=== PATIENT | male | born 1950 | race Caucasian/White ===

== ENCOUNTER 2020-06-29 11:00 | Inpatient (IN) ==
[2020-06-29] MEDS ORDERED: Aspirin 81 MG TAB.CHEW PO ONE (11:02)
[2020-06-29 11:34] LABS: Basophils % 0.4 %; Eosinophils # 0.1 K/mcL (0.0-0.6); Eosinophils % 0.9 %; Hematocrit 34.7 % (37.5-50.1); Hemoglobin 11.9 g/dL (12.9-16.9); Immature Granulocytes % 0.7 % (0-4); Lymphocytes # 1.8 K/mcL (0.6-4.6); Lymphocytes % 19.8 %; Mean Corpuscular HGB Conc 34.3 g/dL (31.6-35.5); Mean Corpuscular Hemoglobin 32.2 pg (28.0-33.3); Mean Corpuscular Volume 93.8 fL (83.0-100.0); Mean Platelet Volume 9.7 fL (9.4-12.4); Monocytes # 0.7 K/mcL (0.0-1.3); Monocytes % 7.7 %; Neutrophils # 6.5 K/mcL (1.6-8.9); Platelet Count 120 K/mcL (140-400); Red Cell Distribution Width 13.2 % (11.5-14.5); Segmented Neutrophils % 70.5 %; White Blood Count 9.2 K/mcL (4.3-11.1)
[2020-06-29 11:46] LABS: INR 1.4
[2020-06-29 11:49] LABS: Activated Partial Thrombo Time 25.6 Seconds (26.0-36.0)
[2020-06-29 11:53] LABS: Albumin 3.2 g/dL (3.5-5.7); Albumin/Globulin Ratio 0.7 (1.1-2.2); Bilirubin,Direct 0.4 mg/dL (0.0-0.2); Bilirubin,Indirect 0.8 mg/dL (0.0-1.0); Bilirubin,Total 1.2 mg/dL (0.3-1.0); Globulin 4.4 g/dL (2.4-3.5); Total Protein 7.6 g/dL (6.4-8.9)
[2020-06-29 11:55] LABS: BUN/Creatinine Ratio 15 (6-26); Blood Urea Nitrogen 16 mg/dL (8-23); Calcium 9.1 mg/dL (8.6-10.3); Carbon Dioxide 24 mEq/L (23-29); Chloride 105 mEq/L (98-107); Glucose 126 mg/dL (70-105); Magnesium 1.7 mg/dL (1.6-2.6); Osmolality,Calculated 283 (280-300); Phosphorous 2.3 mg/dL (2.7-4.5); Potassium 3.7 mEq/L (3.5-5.1); Sodium 135 mEq/L (136-145); Troponin I < 0.03 ng/mL (< 0.04); eGFR For African Americans > 60 (> 60); eGFR For Non-African Americans > 60 (> 60)
[2020-06-29 13:22] LABS: Amphetamine Screen,Urine Negative ng/mL (Cutoff=1000); Barbiturate Screen,Urine Negative ng/mL (Cutoff=200); Benzodiazepines Screen,Urine Negative ng/mL (Cutoff=200); Cannabinoid Screen,Urine Negative ng/mL (Cutoff = 50); Cocaine Screen,Urine Negative ng/mL (Cutoff= 300); Opiate Screen,Urine Negative ng/mL (Cutoff=300); Phencyclidine Screen,Urine Negative ng/mL (Cutoff=25)
[2020-06-29 13:24] LABS: Acetaminophen < 10 mcg/mL (10-20); Ethanol < 10 mg/dL (Less than 10); Salicylate < 2.5 mg/dL (15.0-30.0)
[2020-06-29 13:40] LABS: Bacteria,Urine Few per hpf (None-Few); Bilirubin,Urine Negative (Negative); Blood,Urine Small (Negative); Clarity,Urine Clear (Clear); Color,Urine Yellow (Yellow); Glucose,Urine (UA) 50 mg/dL (Normal); Hyaline Casts,Urine Few per lpf (None Seen); Ketones,Urine Negative (Negative); Leukocyte Esterase,Urine Moderate (Negative); Mucus,Urine Few per lpf (None-Few); Nitrite,Urine Positive (Negative); Protein,Urine 30 mg/dL (Neg-Trace); Specific Gravity,Urine 1.022 (1.010-1.025); Squamous Epithelial Cell,Urine Few per hpf (None-Few); WBC,Urine 15-30 per hpf (0-3)
[2020-06-29] MEDS ORDERED: cefTRIAXone 1,000 MG in Water for inj. (sterile) 10 ML IVP ONE (14:28)
[2020-06-29] MEDS ORDERED: Acetaminophen 325 MG TABLET PO PRN (14:30)
[2020-06-29] MEDS ORDERED: Ondansetron ODT 4 MG TAB.RAPDIS SL PRN (14:30)
[2020-06-29] MEDS ORDERED: Haloperidol Lactate 5 MG/ML VIAL IVP PRN (14:41)
[2020-06-29] MEDS ORDERED: *HR* LORazepam 2 MG/ML VIAL IVP PRN ×3 (15:45)
[2020-06-29] MEDS: Thiamine (B-1) 100 MG TABLET PO SCH (16:12)
[2020-06-29] MEDS: Vitamin B Complex/Vit C/Vit E 1 EACH TABLET PO SCH (16:12)
[2020-06-29] MEDS: Gabapentin 300 MG CAPSULE PO SCH (20:05)
[2020-06-30] MEDS ORDERED: Regadenoson 0.4 MG/5 ML SYRINGE IVP ONE (06:29)
[2020-06-30] MEDS: *HR* Enoxaparin 40 MG/0.4 ML SYRINGE SQ SCH (06:59)
[2020-06-30] MEDS: DilTIAZem CD (24hr) 180 MG CAP.ER.24H PO SCH (11:57)
[2020-06-30] MEDS: Aspirin Enteric Coated 81 MG Tablet PO SCH (11:57)
[2020-06-30] MEDS: cefTRIAXone 1,000 MG in Water for inj. (sterile) 10 ML IVP SCH (11:57)
[2020-06-30] MEDS: Thiamine (B-1) 100 MG TABLET PO SCH (11:57)
[2020-06-30] MEDS: Vitamin B Complex/Vit C/Vit E 1 EACH TABLET PO SCH (11:57)
[2020-06-30] MEDS ORDERED: Perflutren Lipid Microsphere 1.3 ML in 0.9 % Sodium Chloride 8.7 ML IVP PRN (15:36)
[2020-06-30] MEDS: Gabapentin 300 MG CAPSULE PO SCH (20:18)
[2020-07-01] MEDS: *HR* Enoxaparin 40 MG/0.4 ML SYRINGE SQ SCH (05:09)
[2020-07-01] MEDS: Thiamine (B-1) 100 MG TABLET PO SCH (07:34)
[2020-07-01] MEDS: DilTIAZem CD (24hr) 180 MG CAP.ER.24H PO SCH (07:35)
[2020-07-01] MEDS: cefTRIAXone 1,000 MG in Water for inj. (sterile) 10 ML IVP SCH (07:35)
[2020-07-01] MEDS: Vitamin B Complex/Vit C/Vit E 1 EACH TABLET PO SCH (07:35)
[2020-07-01] MEDS: Aspirin Enteric Coated 81 MG Tablet PO SCH (07:35)
[2020-07-01 09:04] LABS: Hematocrit 36.5 % (37.5-50.1); Hemoglobin 12.2 g/dL (12.9-16.9); Mean Corpuscular HGB Conc 33.4 g/dL (31.6-35.5); Mean Corpuscular Hemoglobin 32.1 pg (28.0-33.3); Mean Corpuscular Volume 96.1 fL (83.0-100.0); Mean Platelet Volume 9.5 fL (9.4-12.4); Platelet Count 121 K/mcL (140-400); Red Cell Distribution Width 13.6 % (11.5-14.5); White Blood Count 7.4 K/mcL (4.3-11.1)
[2020-07-01 09:25] LABS: BUN/Creatinine Ratio 21 (6-26); Blood Urea Nitrogen 17 mg/dL (8-23); Calcium 9.3 mg/dL (8.6-10.3); Carbon Dioxide 26 mEq/L (23-29); Chloride 106 mEq/L (98-107); Glucose 116 mg/dL (70-105); Osmolality,Calculated 291 (280-300); Potassium 3.5 mEq/L (3.5-5.1); Sodium 139 mEq/L (136-145); eGFR For African Americans > 60 (> 60); eGFR For Non-African Americans > 60 (> 60)
[2020-07-01] MEDS: Metoprolol XL (24 HR) Succ 25 MG TAB.ER.24H PO SCH (13:13)
[2020-07-01] MEDS: Gabapentin 300 MG CAPSULE PO SCH (21:56)
[2020-07-02] MEDS: *HR* Enoxaparin 40 MG/0.4 ML SYRINGE SQ SCH (05:13)
[2020-07-02] MEDS: Thiamine (B-1) 100 MG TABLET PO SCH (07:28)
[2020-07-02] MEDS: Metoprolol XL (24 HR) Succ 25 MG TAB.ER.24H PO SCH (07:28)
[2020-07-02] MEDS: Aspirin Enteric Coated 81 MG Tablet PO SCH (07:28)
[2020-07-02] MEDS: Vitamin B Complex/Vit C/Vit E 1 EACH TABLET PO SCH (07:28)
[2020-07-02] MEDS: DilTIAZem CD (24hr) 180 MG CAP.ER.24H PO SCH (07:28)
[2020-07-02] MEDS: lisinopriL 5 MG TABLET PO SCH (11:55)
[2020-07-02 13:45] LABS: Adenovirus Not Detected (Not Detect); Bordetella Pertussis Not Detected (Not Detect); Chlamydophila pneumoniae Not Detected (Not Detect); Coronavirus 229E Not Detected (Not Detect); Coronavirus HKU1 Not Detected (Not Detect); Coronavirus NL63 Not Detected (Not Detect); Coronavirus OC43 Not Detected (Not Detect); Human Metapneumovirus Not Detected (Not Detect); Human Rhinovirus/Enterovirus Not Detected (Not Detect); Influenza A Subtype 2009 H1 Not Detected (Not Detect); Influenza B Not Detected (Not Detect); Mycoplasma pneumoniae Not Detected (Not Detect); Parainfluenza Virus 1 Not Detected (Not Detect); Parainfluenza Virus 2 Not Detected (Not Detect); Parainfluenza Virus 3 Not Detected (Not Detect); Parainfluenza Virus 4 Not Detected (Not Detect); Respiratory Syncytial Virus Not Detected (Not Detect); SARS-CoV-2 Not Detected (Not Detect)
[2020-07-02] MEDS: Gabapentin 300 MG CAPSULE PO SCH (19:27)
[2020-07-03] MEDS: *HR* Enoxaparin 40 MG/0.4 ML SYRINGE SQ SCH (05:14)
[2020-07-03] MEDS: Thiamine (B-1) 100 MG TABLET PO SCH (07:27)
[2020-07-03] MEDS: Vitamin B Complex/Vit C/Vit E 1 EACH TABLET PO SCH (07:27)
[2020-07-03] MEDS: lisinopriL 5 MG TABLET PO SCH (07:27)
[2020-07-03] MEDS: Aspirin Enteric Coated 81 MG Tablet PO SCH (07:27)
[2020-07-03] MEDS ORDERED: Metoprolol XL (24 HR) Succ 25 MG TAB.ER.24H PO SCH (09:00)
[2020-07-03 11:07] VITALS: BP 137/82
== END 2020-07-03 14:09 | DRG 313 ==
LOC: EMEROOARM 11:00 → 3BNU 11:00 → SUATTDRO 14:26 → 3BNU 15:55 → SUATTDRO 07-01 14:28
PROVIDERS: ADMIT Student in an Organized Health Care Education/Training Program; ATTEND Internal Medicine

== ENCOUNTER 2020-07-05 18:38 | Inpatient (IN) ==
[2020-07-05] MEDS ORDERED: Acetaminophen 325 MG TABLET PO PRN (21:57)
[2020-07-05] MEDS ORDERED: Melatonin 3 MG TABLET PO PRN (21:57)
[2020-07-05] MEDS ORDERED: Naloxone 0.4 MG/ML INJ IVP PRN (21:57)
[2020-07-05] MEDS ORDERED: Ondansetron 4 MG/2 ML VIAL IVP PRN (21:57)
[2020-07-05] MEDS ORDERED: Haloperidol Lactate 5 MG/ML VIAL IM PRN (22:03)
[2020-07-05] MEDS ORDERED: traZODone 50 MG TABLET PO PRN (22:03)
[2020-07-05] MEDS ORDERED: *HR* LORazepam 1 MG TABLET PO PRN (22:03)
[2020-07-05] MEDS ORDERED: haloperidoL 5 MG TABLET PO PRN (22:35)
[2020-07-05] MEDS: Ringers Solution, Lactated 1,000 ML IVC SCH (22:57)
[2020-07-06 04:32] LABS: Basophils % 0.5 %; Mean Corpuscular Volume 96.2 fL (83.0-100.0); Red Cell Distribution Width 14.1 % (11.5-14.5)
[2020-07-06 04:34] LABS: Eosinophils # 0.1 K/mcL (0.0-0.6); Hematocrit 38.2 % (37.5-50.1); Hemoglobin 12.6 g/dL (12.9-16.9); Immature Granulocytes % 0.3 % (0-4); Immature Platelets 3.8 % (1.1-6.1); Lymphocytes # 2.4 K/mcL (0.6-4.6); Lymphocytes % 27.3 %; Mean Corpuscular Hemoglobin 31.7 pg (28.0-33.3); Mean Platelet Volume 9.5 fL (9.4-12.4); Monocytes # 1.2 K/mcL (0.0-1.3); Monocytes % 14.2 %; Platelet Count 130 K/mcL (140-400); Red Blood Count 3.97 M/mcL (4.19-5.50); Segmented Neutrophils % 56.7 %; White Blood Count 8.7 K/mcL (4.3-11.1)
[2020-07-06 04:41] LABS: Neutrophils # 4.9 K/mcL (1.6-8.9)
[2020-07-06 04:48] LABS: BUN/Creatinine Ratio 26 (6-26); Blood Urea Nitrogen 24 mg/dL (8-23); Calcium 8.7 mg/dL (8.6-10.3); Carbon Dioxide 26 mEq/L (23-29); Chloride 106 mEq/L (98-107); Glucose 136 mg/dL (70-105); Magnesium 1.8 mg/dL (1.6-2.6); Osmolality,Calculated 290 (280-300); Potassium 3.6 mEq/L (3.5-5.1); Sodium 137 mEq/L (136-145); eGFR For African Americans > 60 (> 60); eGFR For Non-African Americans > 60 (> 60)
[2020-07-06 04:58] LABS: INR 1.4
[2020-07-06] MEDS ORDERED: *HR* Enoxaparin 40 MG/0.4 ML SYRINGE SQ SCH (06:00)
[2020-07-06] MEDS ORDERED: Metoprolol XL (24 HR) Succ 50 MG TAB.ER.24H PO SCH (09:00)
[2020-07-06] MEDS: Aspirin Enteric Coated 81 MG Tablet PO SCH (09:24)
[2020-07-06] MEDS: Folic Acid 1 MG TABLET PO SCH (09:24)
[2020-07-06] MEDS: Ringers Solution, Lactated 1,000 ML IVC SCH (09:27)
[2020-07-06] MEDS ORDERED: *HR* Dextrose 50 % in Water (Vial) 50 ML VIAL IVP PRN (15:57)
[2020-07-06] MEDS ORDERED: D5% in Water 1,000 ML IVC PRN (15:57)
[2020-07-06] MEDS ORDERED: Dextrose Gel 15 GM/37.5 ML TUBE PO PRN ×2 (15:57)
[2020-07-06] MEDS: Insulin LISPRO 300 UNITS/3 ML VIAL SUBQ SCH ×2 (16:50→20:26)
[2020-07-06] MEDS: Thiamine (B-1) 100 MG TABLET PO SCH (20:33)
[2020-07-07] MEDS: Insulin LISPRO 300 UNITS/3 ML VIAL SUBQ SCH ×4 (08:19→22:11)
[2020-07-07] MEDS: Aspirin Enteric Coated 81 MG Tablet PO SCH (09:23)
[2020-07-07] MEDS: Psyllium 1 PACKET POWD.PACK PO SCH (09:24)
[2020-07-07] MEDS: Folic Acid 1 MG TABLET PO SCH (09:24)
[2020-07-07] MEDS: Thiamine (B-1) 100 MG TABLET PO SCH ×2 (09:26→22:11)
[2020-07-07] MEDS: Metoprolol XL (24 HR) Succ 25 MG TAB.ER.24H PO SCH (09:30)
[2020-07-08 06:04] LABS: Basophils % 0.7 %; Immature Granulocytes % 0.4 % (0-4); Mean Corpuscular Hemoglobin 32.3 pg (28.0-33.3); Red Cell Distribution Width 13.8 % (11.5-14.5)
[2020-07-08 06:06] LABS: Basophils # 0.1 K/mcL (0.0-0.2); Eosinophils # 0.1 K/mcL (0.0-0.6); Eosinophils % 1.9 %; Hematocrit 40.4 % (37.5-50.1); Hemoglobin 13.6 g/dL (12.9-16.9); Immature Platelets 4.1 % (1.1-6.1); Lymphocytes # 2.6 K/mcL (0.6-4.6); Lymphocytes % 35.4 %; Mean Corpuscular HGB Conc 33.7 g/dL (31.6-35.5); Monocytes # 0.9 K/mcL (0.0-1.3); Monocytes % 11.8 %; Neutrophils # 3.6 K/mcL (1.6-8.9); Platelet Count 144 K/mcL (140-400); Red Blood Count 4.21 M/mcL (4.19-5.50); Segmented Neutrophils % 49.8 %; White Blood Count 7.3 K/mcL (4.3-11.1)
[2020-07-08 06:23] LABS: BUN/Creatinine Ratio 26 (6-26); Blood Urea Nitrogen 22 mg/dL (8-23); Calcium 9.2 mg/dL (8.6-10.3); Carbon Dioxide 25 mEq/L (23-29); Chloride 106 mEq/L (98-107); Glucose 101 mg/dL (70-105); Osmolality,Calculated 287 (280-300); Potassium 3.8 mEq/L (3.5-5.1); Sodium 137 mEq/L (136-145); eGFR For African Americans > 60 (> 60); eGFR For Non-African Americans > 60 (> 60)
[2020-07-08] MEDS: Insulin LISPRO 300 UNITS/3 ML VIAL SUBQ SCH ×4 (08:56→20:31)
[2020-07-08] MEDS: Aspirin Enteric Coated 81 MG Tablet PO SCH (09:12)
[2020-07-08] MEDS: Metoprolol XL (24 HR) Succ 25 MG TAB.ER.24H PO SCH (09:12)
[2020-07-08] MEDS: Thiamine (B-1) 100 MG TABLET PO SCH ×2 (09:13→20:34)
[2020-07-08] MEDS: Psyllium 1 PACKET POWD.PACK PO SCH (09:13)
[2020-07-08] MEDS: Folic Acid 1 MG TABLET PO SCH (09:13)
[2020-07-09] MEDS: Insulin LISPRO 300 UNITS/3 ML VIAL SUBQ SCH ×4 (08:14→21:53)
[2020-07-09] MEDS: Thiamine (B-1) 100 MG TABLET PO SCH ×2 (08:16→21:57)
[2020-07-09] MEDS: Metoprolol XL (24 HR) Succ 25 MG TAB.ER.24H PO SCH (08:16)
[2020-07-09] MEDS: Folic Acid 1 MG TABLET PO SCH (08:16)
[2020-07-09] MEDS: Aspirin Enteric Coated 81 MG Tablet PO SCH (08:16)
[2020-07-09] MEDS: Psyllium 1 PACKET POWD.PACK PO SCH (08:16)
[2020-07-09] MEDS ORDERED: 0.9 % Sodium Chloride 500 ML IVC ONE (12:14)
[2020-07-10] MEDS: Insulin LISPRO 300 UNITS/3 ML VIAL SUBQ SCH ×4 (07:31→21:44)
[2020-07-10] MEDS: Aspirin Enteric Coated 81 MG Tablet PO SCH (09:13)
[2020-07-10] MEDS: Metoprolol XL (24 HR) Succ 25 MG TAB.ER.24H PO SCH (09:13)
[2020-07-10] MEDS: Folic Acid 1 MG TABLET PO SCH (09:13)
[2020-07-10] MEDS: Thiamine (B-1) 100 MG TABLET PO SCH ×2 (09:13→21:45)
[2020-07-10] MEDS: Psyllium 1 PACKET POWD.PACK PO SCH (09:14)
[2020-07-11] MEDS: Aspirin Enteric Coated 81 MG Tablet PO SCH (08:41)
[2020-07-11] MEDS: Metoprolol XL (24 HR) Succ 25 MG TAB.ER.24H PO SCH (08:41)
[2020-07-11] MEDS: Thiamine (B-1) 100 MG TABLET PO SCH ×2 (08:41→21:48)
[2020-07-11] MEDS: Folic Acid 1 MG TABLET PO SCH (08:41)
[2020-07-11] MEDS: Insulin LISPRO 300 UNITS/3 ML VIAL SUBQ SCH ×4 (08:42→21:47)
[2020-07-11] MEDS: Psyllium 1 PACKET POWD.PACK PO SCH (08:42)
[2020-07-11] MEDS: 0.9 % Sodium Chloride 1,000 ML IVC SCH (13:23)
[2020-07-12] MEDS: 0.9 % Sodium Chloride 1,000 ML IVC SCH ×2 (02:49→16:38)
[2020-07-12 04:46] LABS: Basophils % 0.5 %; Eosinophils # 0.1 K/mcL (0.0-0.6); Eosinophils % 1.7 %; Hematocrit 37.7 % (37.5-50.1); Hemoglobin 12.8 g/dL (12.9-16.9); Immature Granulocytes % 0.4 % (0-4); Lymphocytes # 2.2 K/mcL (0.6-4.6); Lymphocytes % 29.4 %; Mean Corpuscular Hemoglobin 31.8 pg (28.0-33.3); Mean Corpuscular Volume 93.5 fL (83.0-100.0); Mean Platelet Volume 9.9 fL (9.4-12.4); Monocytes # 0.7 K/mcL (0.0-1.3); Monocytes % 9.5 %; Neutrophils # 4.4 K/mcL (1.6-8.9); Platelet Count 175 K/mcL (140-400); Red Blood Count 4.03 M/mcL (4.19-5.50); Red Cell Distribution Width 13.6 % (11.5-14.5); Segmented Neutrophils % 58.5 %; White Blood Count 7.5 K/mcL (4.3-11.1)
[2020-07-12 05:23] LABS: BUN/Creatinine Ratio 24 (6-26); Blood Urea Nitrogen 21 mg/dL (8-23); Carbon Dioxide 25 mEq/L (23-29); Chloride 108 mEq/L (98-107); Glucose 104 mg/dL (70-105); Osmolality,Calculated 291 (280-300); Potassium 3.9 mEq/L (3.5-5.1); Sodium 139 mEq/L (136-145); eGFR For African Americans > 60 (> 60); eGFR For Non-African Americans > 60 (> 60)
[2020-07-12] MEDS: Insulin LISPRO 300 UNITS/3 ML VIAL SUBQ SCH ×4 (07:46→21:13)
[2020-07-12] MEDS: Metoprolol XL (24 HR) Succ 25 MG TAB.ER.24H PO SCH (08:52)
[2020-07-12] MEDS: Thiamine (B-1) 100 MG TABLET PO SCH ×2 (08:52→21:18)
[2020-07-12] MEDS: Psyllium 1 PACKET POWD.PACK PO SCH (08:52)
[2020-07-12] MEDS: Aspirin Enteric Coated 81 MG Tablet PO SCH (08:52)
[2020-07-13] MEDS: 0.9 % Sodium Chloride 1,000 ML IVC SCH (05:55)
[2020-07-13] MEDS: Insulin LISPRO 300 UNITS/3 ML VIAL SUBQ SCH ×4 (07:27→21:52)
[2020-07-13] MEDS: Thiamine (B-1) 100 MG TABLET PO SCH (08:11)
[2020-07-13] MEDS: Aspirin Enteric Coated 81 MG Tablet PO SCH (08:11)
[2020-07-13] MEDS: Metoprolol XL (24 HR) Succ 25 MG TAB.ER.24H PO SCH (08:11)
[2020-07-13] MEDS: Psyllium 1 PACKET POWD.PACK PO SCH (08:12)
[2020-07-13 14:52] LABS: Adenovirus Not Detected (Not Detect); Coronavirus 229E Not Detected (Not Detect); Coronavirus HKU1 Not Detected (Not Detect); Coronavirus NL63 Not Detected (Not Detect); Coronavirus OC43 Not Detected (Not Detect); Human Metapneumovirus Not Detected (Not Detect); Human Rhinovirus/Enterovirus Not Detected (Not Detect); Influenza A Subtype 2009 H1 Not Detected (Not Detect); SARS-CoV-2 Not Detected (Not Detect)
[2020-07-13 14:53] LABS: Bordetella Pertussis Not Detected (Not Detect); Chlamydophila pneumoniae Not Detected (Not Detect); Influenza B Not Detected (Not Detect); Mycoplasma pneumoniae Not Detected (Not Detect); Parainfluenza Virus 1 Not Detected (Not Detect); Parainfluenza Virus 2 Not Detected (Not Detect); Parainfluenza Virus 3 Not Detected (Not Detect); Parainfluenza Virus 4 Not Detected (Not Detect); Respiratory Syncytial Virus Not Detected (Not Detect)
[2020-07-14] MEDS: Thiamine (B-1) 100 MG TABLET PO SCH ×3 (00:22→20:36)
[2020-07-14] MEDS: Aspirin Enteric Coated 81 MG Tablet PO SCH (09:36)
[2020-07-14] MEDS: Metoprolol XL (24 HR) Succ 25 MG TAB.ER.24H PO SCH (09:36)
[2020-07-14] MEDS: Psyllium 1 PACKET POWD.PACK PO SCH (09:37)
[2020-07-14] MEDS: Insulin LISPRO 300 UNITS/3 ML VIAL SUBQ SCH ×4 (09:38→20:39)
[2020-07-14] MEDS: 0.9 % Sodium Chloride 1,000 ML IVC SCH ×2 (10:43→22:20)
[2020-07-15] MEDS ORDERED: *HR* Metoprolol 5 MG/5 ML VIAL IVP ONE (00:01)
[2020-07-15] MEDS: Insulin LISPRO 300 UNITS/3 ML VIAL SUBQ SCH ×4 (08:41→20:35)
[2020-07-15] MEDS: Aspirin Enteric Coated 81 MG Tablet PO SCH (08:47)
[2020-07-15] MEDS: Metoprolol XL (24 HR) Succ 25 MG TAB.ER.24H PO SCH (08:47)
[2020-07-15] MEDS: Thiamine (B-1) 100 MG TABLET PO SCH ×2 (08:47→20:34)
[2020-07-15] MEDS: Psyllium 1 PACKET POWD.PACK PO SCH (08:48)
[2020-07-15 10:05] LABS: Basophils # 0.1 K/mcL (0.0-0.2); Basophils % 0.6 %; Eosinophils # 0.2 K/mcL (0.0-0.6); Eosinophils % 1.9 %; Hemoglobin 12.8 g/dL (12.9-16.9); Immature Granulocytes % 0.3 % (0-4); Lymphocytes # 2.6 K/mcL (0.6-4.6); Lymphocytes % 33.9 %; Mean Corpuscular HGB Conc 34.6 g/dL (31.6-35.5); Mean Corpuscular Hemoglobin 32.7 pg (28.0-33.3); Mean Corpuscular Volume 94.6 fL (83.0-100.0); Mean Platelet Volume 9.7 fL (9.4-12.4); Monocytes # 0.7 K/mcL (0.0-1.3); Monocytes % 9.5 %; Neutrophils # 4.2 K/mcL (1.6-8.9); Platelet Count 181 K/mcL (140-400); Red Blood Count 3.91 M/mcL (4.19-5.50); Segmented Neutrophils % 53.8 %; White Blood Count 7.7 K/mcL (4.3-11.1)
[2020-07-15 10:27] LABS: BUN/Creatinine Ratio 20 (6-26); Blood Urea Nitrogen 20 mg/dL (8-23); Calcium 8.6 mg/dL (8.6-10.3); Carbon Dioxide 25 mEq/L (23-29); Chloride 108 mEq/L (98-107); Glucose 125 mg/dL (70-105); Osmolality,Calculated 292 (280-300); Sodium 139 mEq/L (136-145); eGFR For African Americans > 60 (> 60); eGFR For Non-African Americans > 60 (> 60)
[2020-07-15] MEDS: 0.9 % Sodium Chloride 1,000 ML IVC SCH (13:22)
[2020-07-16] MEDS: 0.9 % Sodium Chloride 1,000 ML IVC SCH ×2 (03:24→16:42)
[2020-07-16] MEDS: Thiamine (B-1) 100 MG TABLET PO SCH ×2 (08:46→20:20)
[2020-07-16] MEDS: Aspirin Enteric Coated 81 MG Tablet PO SCH (08:46)
[2020-07-16] MEDS: Psyllium 1 PACKET POWD.PACK PO SCH (08:46)
[2020-07-16] MEDS: Insulin LISPRO 300 UNITS/3 ML VIAL SUBQ SCH ×4 (08:46→20:18)
[2020-07-16] MEDS: Metoprolol XL (24 HR) Succ 25 MG TAB.ER.24H PO SCH (08:47)
[2020-07-17 05:50] LABS: Basophils # 0.1 K/mcL (0.0-0.2); Basophils % 0.8 %; Eosinophils # 0.2 K/mcL (0.0-0.6); Eosinophils % 2.3 %; Hemoglobin 13.3 g/dL (12.9-16.9); Immature Granulocytes % 0.2 % (0-4); Lymphocytes # 2.4 K/mcL (0.6-4.6); Mean Corpuscular HGB Conc 34.1 g/dL (31.6-35.5); Mean Corpuscular Hemoglobin 31.7 pg (28.0-33.3); Mean Corpuscular Volume 93.1 fL (83.0-100.0); Mean Platelet Volume 9.7 fL (9.4-12.4); Monocytes # 0.7 K/mcL (0.0-1.3); Monocytes % 8.2 %; Neutrophils # 4.9 K/mcL (1.6-8.9); Platelet Count 185 K/mcL (140-400); Red Blood Count 4.19 M/mcL (4.19-5.50); Segmented Neutrophils % 59.5 %; White Blood Count 8.3 K/mcL (4.3-11.1)
[2020-07-17] MEDS: 0.9 % Sodium Chloride 1,000 ML IVC SCH (06:05)
[2020-07-17 06:09] LABS: BUN/Creatinine Ratio 20 (6-26); Blood Urea Nitrogen 19 mg/dL (8-23); Calcium 8.7 mg/dL (8.6-10.3); Carbon Dioxide 23 mEq/L (23-29); Chloride 107 mEq/L (98-107); Glucose 101 mg/dL (70-105); Osmolality,Calculated 290 (280-300); Potassium 3.3 mEq/L (3.5-5.1); Sodium 139 mEq/L (136-145); eGFR For African Americans > 60 (> 60); eGFR For Non-African Americans > 60 (> 60)
[2020-07-17] MEDS: Insulin LISPRO 300 UNITS/3 ML VIAL SUBQ SCH ×4 (09:53→20:12)
[2020-07-17] MEDS: Aspirin Enteric Coated 81 MG Tablet PO SCH (09:55)
[2020-07-17] MEDS: Metoprolol XL (24 HR) Succ 25 MG TAB.ER.24H PO SCH (09:55)
[2020-07-17] MEDS: Thiamine (B-1) 100 MG TABLET PO SCH ×2 (09:55→20:07)
[2020-07-17] MEDS: Psyllium 1 PACKET POWD.PACK PO SCH (09:56)
[2020-07-18 06:05] LABS: BUN/Creatinine Ratio 21 (6-26); Blood Urea Nitrogen 20 mg/dL (8-23); Calcium 8.9 mg/dL (8.6-10.3); Carbon Dioxide 24 mEq/L (23-29); Chloride 109 mEq/L (98-107); Glucose 151 mg/dL (70-105); Osmolality,Calculated 296 (280-300); Potassium 3.3 mEq/L (3.5-5.1); Sodium 140 mEq/L (136-145); eGFR For African Americans > 60 (> 60); eGFR For Non-African Americans > 60 (> 60)
[2020-07-18] MEDS: Aspirin Enteric Coated 81 MG Tablet PO SCH (07:55)
[2020-07-18] MEDS: Folic Acid 1 MG TABLET PO SCH (07:56)
[2020-07-18] MEDS: Psyllium 1 PACKET POWD.PACK PO SCH (07:56)
[2020-07-18] MEDS: Thiamine (B-1) 100 MG TABLET PO SCH ×2 (07:57→19:51)
[2020-07-18] MEDS: Metoprolol XL (24 HR) Succ 25 MG TAB.ER.24H PO SCH (07:57)
[2020-07-18] MEDS: Insulin LISPRO 300 UNITS/3 ML VIAL SUBQ SCH ×4 (09:05→19:51)
[2020-07-18] MEDS ORDERED: haloperidoL 1 MG TABLET PO PRN (11:06)
[2020-07-19 05:45] LABS: BUN/Creatinine Ratio 20 (6-26); Blood Urea Nitrogen 20 mg/dL (8-23); Calcium 8.9 mg/dL (8.6-10.3); Carbon Dioxide 26 mEq/L (23-29); Chloride 106 mEq/L (98-107); Glucose 156 mg/dL (70-105); Osmolality,Calculated 292 (280-300); Sodium 138 mEq/L (136-145); eGFR For African Americans > 60 (> 60); eGFR For Non-African Americans > 60 (> 60)
[2020-07-19] MEDS: Insulin LISPRO 300 UNITS/3 ML VIAL SUBQ SCH ×4 (07:31→21:38)
[2020-07-19] MEDS: Metoprolol XL (24 HR) Succ 25 MG TAB.ER.24H PO SCH (09:10)
[2020-07-19] MEDS: Folic Acid 1 MG TABLET PO SCH (09:10)
[2020-07-19] MEDS: Thiamine (B-1) 100 MG TABLET PO SCH ×2 (09:10→21:38)
[2020-07-19] MEDS: Aspirin Enteric Coated 81 MG Tablet PO SCH (09:10)
[2020-07-19] MEDS: Psyllium 1 PACKET POWD.PACK PO SCH (09:12)
[2020-07-20 05:24] LABS: BUN/Creatinine Ratio 21 (6-26); Blood Urea Nitrogen 23 mg/dL (8-23); Calcium 9.4 mg/dL (8.6-10.3); Carbon Dioxide 29 mEq/L (23-29); Chloride 105 mEq/L (98-107); Glucose 82 mg/dL (70-105); Osmolality,Calculated 295 (280-300); Potassium 3.6 mEq/L (3.5-5.1); Sodium 141 mEq/L (136-145); eGFR For African Americans > 60 (> 60); eGFR For Non-African Americans > 60 (> 60)
[2020-07-20] MEDS: Insulin LISPRO 300 UNITS/3 ML VIAL SUBQ SCH ×4 (08:59→21:47)
[2020-07-20] MEDS: Metoprolol XL (24 HR) Succ 25 MG TAB.ER.24H PO SCH (09:00)
[2020-07-20] MEDS: Aspirin Enteric Coated 81 MG Tablet PO SCH (09:00)
[2020-07-20] MEDS: Thiamine (B-1) 100 MG TABLET PO SCH ×2 (09:01→21:47)
[2020-07-20] MEDS: Folic Acid 1 MG TABLET PO SCH (09:01)
[2020-07-20] MEDS: Psyllium 1 PACKET POWD.PACK PO SCH (09:01)
[2020-07-21] MEDS: Insulin LISPRO 300 UNITS/3 ML VIAL SUBQ SCH ×4 (08:52→21:53)
[2020-07-21] MEDS: Metoprolol XL (24 HR) Succ 25 MG TAB.ER.24H PO SCH (08:53)
[2020-07-21] MEDS: Psyllium 1 PACKET POWD.PACK PO SCH (08:53)
[2020-07-21] MEDS: Thiamine (B-1) 100 MG TABLET PO SCH ×2 (08:54→21:54)
[2020-07-21] MEDS: Aspirin Enteric Coated 81 MG Tablet PO SCH (08:54)
[2020-07-21] MEDS: Folic Acid 1 MG TABLET PO SCH (08:54)
[2020-07-22 02:18] LABS: Basophils # 0.1 K/mcL (0.0-0.2); Basophils % 0.6 %; Eosinophils # 0.2 K/mcL (0.0-0.6); Eosinophils % 2.7 %; Hematocrit 36.1 % (37.5-50.1); Hemoglobin 12.1 g/dL (12.9-16.9); Immature Granulocytes % 0.2 % (0-4); Lymphocytes # 2.6 K/mcL (0.6-4.6); Lymphocytes % 31.6 %; Mean Corpuscular HGB Conc 33.5 g/dL (31.6-35.5); Mean Corpuscular Hemoglobin 31.1 pg (28.0-33.3); Mean Corpuscular Volume 92.8 fL (83.0-100.0); Mean Platelet Volume 9.9 fL (9.4-12.4); Monocytes # 0.7 K/mcL (0.0-1.3); Monocytes % 8.4 %; Neutrophils # 4.7 K/mcL (1.6-8.9); Platelet Count 171 K/mcL (140-400); Red Blood Count 3.89 M/mcL (4.19-5.50); Segmented Neutrophils % 56.5 %; White Blood Count 8.3 K/mcL (4.3-11.1)
[2020-07-22 02:33] LABS: BUN/Creatinine Ratio 24 (6-26); Blood Urea Nitrogen 24 mg/dL (8-23); Calcium 9.3 mg/dL (8.6-10.3); Carbon Dioxide 28 mEq/L (23-29); Chloride 103 mEq/L (98-107); Glucose 146 mg/dL (70-105); Osmolality,Calculated 291 (280-300); Potassium 3.6 mEq/L (3.5-5.1); Sodium 137 mEq/L (136-145); eGFR For African Americans > 60 (> 60); eGFR For Non-African Americans > 60 (> 60)
[2020-07-22] MEDS: Metoprolol XL (24 HR) Succ 25 MG TAB.ER.24H PO SCH (08:58)
[2020-07-22] MEDS: Aspirin Enteric Coated 81 MG Tablet PO SCH (08:58)
[2020-07-22] MEDS: Insulin LISPRO 300 UNITS/3 ML VIAL SUBQ SCH ×4 (08:58→21:08)
[2020-07-22] MEDS: Psyllium 1 PACKET POWD.PACK PO SCH (08:59)
[2020-07-22] MEDS: Folic Acid 1 MG TABLET PO SCH (08:59)
[2020-07-22] MEDS: Thiamine (B-1) 100 MG TABLET PO SCH ×2 (08:59→21:10)
[2020-07-23 06:09] LABS: Basophils # 0.1 K/mcL (0.0-0.2); Basophils % 0.6 %; Eosinophils # 0.2 K/mcL (0.0-0.6); Eosinophils % 2.7 %; Hematocrit 36.5 % (37.5-50.1); Hemoglobin 12.3 g/dL (12.9-16.9); Immature Granulocytes % 0.2 % (0-4); Lymphocytes # 2.4 K/mcL (0.6-4.6); Lymphocytes % 29.9 %; Mean Corpuscular HGB Conc 33.7 g/dL (31.6-35.5); Mean Corpuscular Hemoglobin 31.5 pg (28.0-33.3); Mean Corpuscular Volume 93.4 fL (83.0-100.0); Monocytes # 0.7 K/mcL (0.0-1.3); Monocytes % 9.1 %; Neutrophils # 4.7 K/mcL (1.6-8.9); Platelet Count 170 K/mcL (140-400); Red Blood Count 3.91 M/mcL (4.19-5.50); Segmented Neutrophils % 57.5 %; White Blood Count 8.1 K/mcL (4.3-11.1)
[2020-07-23 06:26] LABS: BUN/Creatinine Ratio 26 (6-26); Blood Urea Nitrogen 26 mg/dL (8-23); Calcium 9.2 mg/dL (8.6-10.3); Carbon Dioxide 27 mEq/L (23-29); Chloride 104 mEq/L (98-107); Glucose 139 mg/dL (70-105); Osmolality,Calculated 293 (280-300); Potassium 3.6 mEq/L (3.5-5.1); Sodium 138 mEq/L (136-145); eGFR For African Americans > 60 (> 60); eGFR For Non-African Americans > 60 (> 60)
[2020-07-23] MEDS: Thiamine (B-1) 100 MG TABLET PO SCH ×2 (09:03→20:05)
[2020-07-23] MEDS: Psyllium 1 PACKET POWD.PACK PO SCH (09:03)
[2020-07-23] MEDS: Metoprolol XL (24 HR) Succ 25 MG TAB.ER.24H PO SCH (09:03)
[2020-07-23] MEDS: Aspirin Enteric Coated 81 MG Tablet PO SCH (09:03)
[2020-07-23] MEDS: Folic Acid 1 MG TABLET PO SCH (09:03)
[2020-07-23] MEDS: Insulin LISPRO 300 UNITS/3 ML VIAL SUBQ SCH ×4 (09:04→20:43)
[2020-07-24] MEDS: Insulin LISPRO 300 UNITS/3 ML VIAL SUBQ SCH ×4 (07:47→20:37)
[2020-07-24] MEDS: Psyllium 1 PACKET POWD.PACK PO SCH (08:27)
[2020-07-24] MEDS: Thiamine (B-1) 100 MG TABLET PO SCH ×2 (08:27→20:39)
[2020-07-24] MEDS: Folic Acid 1 MG TABLET PO SCH (08:27)
[2020-07-24] MEDS: Metoprolol XL (24 HR) Succ 25 MG TAB.ER.24H PO SCH (08:28)
[2020-07-24] MEDS: Aspirin Enteric Coated 81 MG Tablet PO SCH (08:28)
[2020-07-25] MEDS: Thiamine (B-1) 100 MG TABLET PO SCH ×2 (08:26→21:32)
[2020-07-25] MEDS: Metoprolol XL (24 HR) Succ 25 MG TAB.ER.24H PO SCH (08:26)
[2020-07-25] MEDS: Aspirin Enteric Coated 81 MG Tablet PO SCH (08:27)
[2020-07-25] MEDS: Psyllium 1 PACKET POWD.PACK PO SCH (08:27)
[2020-07-25] MEDS: Folic Acid 1 MG TABLET PO SCH (08:27)
[2020-07-25] MEDS: Insulin LISPRO 300 UNITS/3 ML VIAL SUBQ SCH ×4 (08:28→21:28)
[2020-07-26] MEDS: Psyllium 1 PACKET POWD.PACK PO SCH (09:11)
[2020-07-26] MEDS: Aspirin Enteric Coated 81 MG Tablet PO SCH (09:11)
[2020-07-26] MEDS: Folic Acid 1 MG TABLET PO SCH (09:11)
[2020-07-26] MEDS: Thiamine (B-1) 100 MG TABLET PO SCH (09:11)
[2020-07-26] MEDS: Metoprolol XL (24 HR) Succ 25 MG TAB.ER.24H PO SCH (09:11)
[2020-07-26] MEDS: Insulin LISPRO 300 UNITS/3 ML VIAL SUBQ SCH (09:15)
[2020-07-26 12:38] VITALS: BP 145/90
== END 2020-07-26 15:48 | disposition home or self-care (01) | DRG 57 ==
LOC: 3ANU → SUATTDRO 20:32
PROVIDERS: ADMIT Internal Medicine; ATTEND General Practice